=== PATIENT | female | born 1935 | race Caucasian/White ===

== ENCOUNTER 2016-08-29 12:45 | Emergency (ER) | payer OTHER ==
[~2016-08-29] VITALS: Ht 154.9 cm; Wt 51.3 kg
[2016-08-29] MEDS ORDERED: ATENOLOL50 MG PO (13:12)
[2016-08-29] MEDS ORDERED: AMLODIPINE BESYL5 MG PO (13:12)
[2016-08-29] MEDS ORDERED: LIPITOR10 MG PO (13:13)
[2016-08-29] MEDS ORDERED: BREO ELLIPTA I1 EACH IH (13:14)
[2016-08-29] MEDS ORDERED: LO-DOSE ASPIRIN81 M2 PO (13:14)
[2016-08-29] MEDS ORDERED: VITAMIN B 12 PO (13:15)
[2016-08-29] MEDS ORDERED: CALCIUM/VIT D PO ×2 (13:16)
[2016-08-29] MEDS ORDERED: MELOXICAM7.5 MG PO (13:17)
[2016-08-29 14:00] LABS: EOSINOPHIL (%) 2.3 % (0-5); EOSINOPHIL COUNT 0.2 K/uL (0-0.3); HEMATOCRIT 40.5 % (36.0-46.0); IMMATURE GRANULOCYTE (%) 0.2 % (0.0-0.7); IMMATURE GRANULOCYTE COUNT 0.2 K/uL; MCH 30.8 PG (29.0-34.0); MCHC 32.3 G/DL (30.0-36.0); MCV 95.3 FL (83-99); MONOCYTE (%) 10.1 % (3-12); MONOCYTE COUNT 0.9 K/uL (0-0.8); NEUTROPHIL (%) 64.9 % (45-76); NEUTROPHIL COUNT 5.7 K/uL (1.8-6.4); PLATELET COUNT 237 K/uL (156-360); RBC DIS.WIDTH-CV 13.3 % (11.8-14.6); RBC DIS.WIDTH-SD 44.2 % (39-53); RED BLOOD COUNT 4.25 M/uL (3.80-5.20)
[2016-08-29 14:16] LABS: WHITE BLOOD COUNT 8.8 K/uL (4.1-10.2)
[2016-08-29 14:20] LABS: CHLORIDE 106 mEq/L (99-109); ERTH.SED.RATE 43 MM/HR (0-30); POTASSIUM 4.7 mEq/L (3.7-5.4); SODIUM 140 mEq/L (136-147)
[2016-08-29 14:22] LABS: GLUCOSE 96 mg/dL (70-99)
[2016-08-29 14:23] LABS: ANION GAP 8 MEQ/L (2-14)
[2016-08-29 14:24] LABS: TOTAL BILIRUBIN 0.2 mg/dL (0.0-1.0)
[2016-08-29 14:26] LABS: ALKALINE PHOSPHATASE 95 IU/L (3-129); GFR ESTIMATE (CALCULATED) > 59 mL/min/
[2016-08-29 14:27] LABS: UREA NITROGEN (BUN) 14 mg/dL (9-23)
[2016-08-29 14:59] LABS: C-REACTIVE PROTEIN 26.8 MG/L (0-10)
[2016-08-29] MEDS ORDERED: PREDNISONE50 MG PO (16:35)
[2016-08-29 16:55] VITALS: BP 144/75
== END 2016-08-29 16:57 | disposition home or self-care (01) ==
LOC: EME 12:45
PROVIDERS: Emergency Medicine
DX: J32.3 Chronic sphenoidal sinusitis (principal); R51 Headache; E78.5 Hyperlipidemia, unspecified; I10 Essential (primary) hypertension
CPT/HCPCS: 70496; 70498; 80053; 85025; 85651; 86140; 99281; 99285; J7040; J7512

== ENCOUNTER 2016-09-03 10:23 | Inpatient (IN) | payer OTHER ==
[~2016-09-03] VITALS: Ht 154.9 cm; Wt 54.3 kg
[~2016-09-03 10:23] MED LIST: AMLODIPINE BESYL5 MG PO; ATENOLOL50 MG PO; BREO ELLIPTA I1 EACH IH; CALCIUM/VIT D PO; LIPITOR10 MG PO; LO-DOSE ASPIRIN81 M2 PO; MELOXICAM7.5 MG PO; PREDNISONE50 MG PO; VITAMIN B 12 PO
[2016-09-03 11:16] LABS: CHLORIDE 96 mEq/L (99-109)
[2016-09-03 11:17] LABS: POTASSIUM 4.2 mEq/L (3.7-5.4)
[2016-09-03 11:18] LABS: GLUCOSE 199 mg/dL (70-99)
[2016-09-03 11:19] LABS: EOSINOPHIL (%) 0 % (0-5); HEMATOCRIT 37.7 % (36.0-46.0); IMMATURE GRANULOCYTE (%) 1.1 % (0.0-0.7); IMMATURE GRANULOCYTE COUNT 3.1 K/uL; LYMPHOCYTE COUNT 0.5 K/uL (1.0-2.8); MCH 31.1 PG (29.0-34.0); MCHC 33.2 G/DL (30.0-36.0); MCV 93.8 FL (83-99); MEAN PLAT.VOLUME 9.2 uM^3 (9.5-12.4); MONOCYTE (%) 5.9 % (3-12); MONOCYTE COUNT 1.7 K/uL (0-0.8); NEUTROPHIL (%) 91.1 % (45-76); NEUTROPHIL COUNT 26.9 K/uL (1.8-6.4); PLATELET COUNT 260 K/uL (156-360); RBC DIS.WIDTH-CV 13.2 % (11.8-14.6); RBC DIS.WIDTH-SD 43.6 % (39-53); RED BLOOD COUNT 4.02 M/uL (3.80-5.20); WHITE BLOOD COUNT 29.5 K/uL (4.1-10.2)
[2016-09-03 11:20] LABS: ANION GAP 10 MEQ/L (2-14)
[2016-09-03 11:22] LABS: GFR ESTIMATE (CALCULATED) > 59 mL/min/
[2016-09-03 11:23] LABS: UREA NITROGEN (BUN) 14 mg/dL (9-23)
[2016-09-03 11:24] LABS: SODIUM 129 mEq/L (136-147)
[2016-09-03 12:13] LABS: HEMATOLOGY COMMENT 1 SMEAR COMPATIBLE; USER ID STC
[2016-09-03] MEDS ORDERED: CALCIUM 500 +1 EACH PO ×2 (13:52→13:55)
[2016-09-03] MEDS ORDERED: CALCIUM 500-VI1 EACH PO (13:53)
[2016-09-03] MEDS ORDERED: CYANOCOBALAM1000 MCG PO (13:56)
[2016-09-03] MEDS ORDERED: ENDOCET 5-3251 EACH PO (13:56)
[2016-09-03] MEDS ORDERED: XANAX0.25 MG PO (13:58)
[2016-09-03 20:40] VITALS: BP 140/64
[2016-09-04] VITALS (8 sets, daily range): BP systolic 114–135; BP diastolic 58–66
[2016-09-04 06:14] LABS: HEMATOCRIT 34.3 % (36.0-46.0); MCH 30.8 PG (29.0-34.0); MCHC 32.9 G/DL (30.0-36.0); MCV 93.5 FL (83-99); MEAN PLAT.VOLUME 9.3 uM^3 (9.5-12.4); PLATELET COUNT 231 K/uL (156-360); RBC DIS.WIDTH-CV 13.1 % (11.8-14.6); RBC DIS.WIDTH-SD 43.2 % (39-53); RED BLOOD COUNT 3.67 M/uL (3.80-5.20); WHITE BLOOD COUNT 28.2 K/uL (4.1-10.2)
[2016-09-04 06:27] LABS: CHLORIDE 96 mEq/L (99-109); POTASSIUM 4.7 mEq/L (3.7-5.4); SODIUM 126 mEq/L (136-147)
[2016-09-04 06:29] LABS: GLUCOSE 238 mg/dL (70-99)
[2016-09-04 06:30] LABS: ANION GAP 7 MEQ/L (2-14)
[2016-09-04 06:33] LABS: ALKALINE PHOSPHATASE 86 IU/L (3-129); GFR ESTIMATE (CALCULATED) > 59 mL/min/
[2016-09-04 06:34] LABS: UREA NITROGEN (BUN) 11 mg/dL (9-23)
[2016-09-04 06:40] LABS: TOTAL BILIRUBIN 0.4 mg/dL (0.0-1.0)
[2016-09-04 07:10] LABS: ERTH.SED.RATE 34 MM/HR (0-30)
[2016-09-05 05:22] VITALS: BP 126/68
[2016-09-05 08:06] VITALS: BP 165/77
[2016-09-05 10:01] LABS: HEMATOCRIT 36.6 % (36.0-46.0); MCH 31.5 PG (29.0-34.0); MCHC 33.6 G/DL (30.0-36.0); MCV 93.6 FL (83-99); MEAN PLAT.VOLUME 9.6 uM^3 (9.5-12.4); PLATELET COUNT 254 K/uL (156-360); RBC DIS.WIDTH-CV 13.7 % (11.8-14.6); RBC DIS.WIDTH-SD 46.4 % (39-53); RED BLOOD COUNT 3.91 M/uL (3.80-5.20); WHITE BLOOD COUNT 21.4 K/uL (4.1-10.2)
[2016-09-05 10:25] LABS: ANION GAP 9 MEQ/L (2-14); CHLORIDE 102 MEQ/L (99-109); GFR ESTIMATE (CALCULATED) > 59 mL/min/; GLUCOSE 248 mg/dL (70-99); POTASSIUM 3.9 MEQ/L (3.7-5.4); SAMPLE HEMOLYSIS CHECK 0; SAMPLE ICTERIC CHECK 0; SAMPLE LIPEMIA CHECK 0; UREA NITROGEN (BUN) 13 mg/dL (9-23)
[2016-09-05 10:30] LABS: SODIUM 136 MEQ/L (136-147)
[2016-09-05 11:26] LABS: ADD MIUA? YES; BILIRUBIN NEGATIVE; BLOOD SMALL; COLOR STRAW ((YELLOW)); GLUCOSE (STRIP) 150; KETONES NEGATIVE; LEUKOCYTES NEGATIVE; NITRITE NEGATIVE; PROTEIN (STRIP) NEGATIVE; SPECIFIC GRAVITY 1.005 (1.000-1.030); UROBILINOGEN 0.2 MG/DL (0.2-1.0)
[2016-09-05 11:54] LABS: BACTERIA NONE SEEN /HPF; EPITHELIAL CELLS NONE SEEN /HPF; MUCUS TRACE /LPF; RED BLOOD CELLS 0-5 /HPF (0-5); UCUL ADDED? NO; WHITE BLOOD CELLS 0-5 /HPF (0-5)
[2016-09-05 17:19] VITALS: BP 141/68
[2016-09-05 20:47] VITALS: BP 137/74
[2016-09-06] VITALS: BP 145/71
[2016-09-06 09:03] VITALS: BP 167/82
[2016-09-06] MEDS ORDERED: LEVAQUIN500 MG PO (14:55)
[2016-09-06] MEDS ORDERED: PREDNISONE10 MG PO (14:58)
[2016-09-06 15:10] VITALS: BP 156/79
[2016-09-06] MEDS ORDERED: ZOFRAN4 MG PO (16:07)
== END 2016-09-06 17:00 | disposition home or self-care (01) | DRG 103 ==
LOC: EME 10:23 → EDOF 14:00 → 4SOUTH 14:00
PROVIDERS: Emergency Medicine; Internal Medicine
DX: G43.909 Migraine, unspecified, not intractable, without status migrainosus (principal); K29.00 Acute gastritis without bleeding; I10 Essential (primary) hypertension; K21.9 Gastro-esophageal reflux disease without esophagitis; J44.9 Chronic obstructive pulmonary disease, unspecified; M81.0 Age-related osteoporosis without current pathological fracture; F41.9 Anxiety disorder, unspecified; E86.0 Dehydration; E87.1 Hypo-osmolality and hyponatremia; J01.30 Acute sphenoidal sinusitis, unspecified; E78.5 Hyperlipidemia, unspecified; M19.90 Unspecified osteoarthritis, unspecified site; Z91.81 History of falling; R44.3 Hallucinations, unspecified; T40.605A Adverse effect of unspecified narcotics, initial encounter; Y92.239 Unspecified place in hospital as the place of occurrence of the external cause
CPT/HCPCS: 70450; 70553; 80048; 80053; 81003; 85025; 85027; 85651; 86140; 94640; 94799; 99281; 99285; C9113; J1170; J1956; J2270; J2405; J2920; J7030; J7512